=== PATIENT | female | born 1995 | race Caucasian/White ===

== ENCOUNTER 2017-01-09 07:58 | Inpatient (IN) | payer OTHER ==
[~2017-01-09] VITALS: Ht 149.9 cm; Wt 52.3 kg
[2017-01-09] MEDS ORDERED: ONDANSETRON 2MG/ML, 2ML ONE (08:38)
[2017-01-09] MEDS ORDERED: MORPHINE SULFATE 4 MG/ML, 1ML ONE (08:58)
[2017-01-09] MEDS ORDERED: MORPHINE SULFATE 4 MG/ML, 1ML IVPush PRN ×2 (09:00→13:00)
[2017-01-09] MEDS ORDERED: SODIUM CHLORIDE 0.9% 1,000ML IVBOLUS ONE ×2 (09:00→12:00)
[2017-01-09] MEDS ORDERED: SODIUM CHLORIDE FLUSH 10ML SYR IVF ONE (09:00)
[2017-01-09] MEDS ORDERED: ONDANSETRON 2MG/ML, 2ML IVPush ONE (09:00)
[2017-01-09 09:13] LABS: BLOOD UREA NITROGEN 8 mg/dL (7-18)
[2017-01-09 09:20] LABS: ASPARTATE AMINO TRANSFERASE 120 U/L (15-37)
[2017-01-09 10:39] LABS: PATH.CAST-FLAG NOT PRESENT; SPERM-FLAG NOT PRESENT; SRC-FLAG NOT PRESENT; YLC-FLAG NOT PRESENT
[2017-01-09 10:45] LABS: XTAL-FLAG NOT PRESENT
[2017-01-09] MEDS ORDERED: DOCUSATE 100 MG CAPSULE PO PRN (13:00)
[2017-01-09] MEDS ORDERED: BISACODYL 10 MG SUPP PR PRN (13:00)
[2017-01-09] MEDS ORDERED: POLYETHYLENE GLYCOL 17 GM PACKET PO PRN (13:00)
[2017-01-09] MEDS ORDERED: ONDANSETRON 2MG/ML, 2ML IVPush PRN (13:00)
[2017-01-09 13:43] VITALS: BP 121/82
[2017-01-09] MEDS: SODIUM CHLORIDE 0.9% 1,000 ML IV SCH ×2 (14:49→19:47)
[2017-01-09] MEDS: PIPERACILLIN/TAZO 3.375 GM in SODIUM CHLORIDE 0.9% 50 ML IV SCH ×2 (17:30→23:32)
[2017-01-09 20:02] VITALS: BP 128/66
[2017-01-10] MEDS: SODIUM CHLORIDE 0.9% 1,000 ML IV SCH ×2 (01:17→08:42)
[2017-01-10 02:59] VITALS: BP 94/65
[2017-01-10] MEDS: PIPERACILLIN/TAZO 3.375 GM in SODIUM CHLORIDE 0.9% 50 ML IV SCH ×3 (05:50→19:19)
[2017-01-10 05:58] LABS: BLOOD UREA NITROGEN 5 mg/dL (7-18)
[2017-01-10 06:17] LABS: ASPARTATE AMINO TRANSFERASE 35 U/L (15-37)
[2017-01-10 08:35] VITALS: BP 99/59
[2017-01-10] MEDS ORDERED: BUPIVACAINE/PF 0.5% ONE (08:51)
[2017-01-10] MEDS: POTASSIUM CHLORIDE 30 MEQ in LACTATED RINGERS 1,000 ML IV SCH ×2 (09:30→16:16)
[2017-01-10] MEDS ORDERED: MIDAZOLAM 1 MG/ML, 2ML ONE (09:37)
[2017-01-10] MEDS ORDERED: FENTANYL PF 250 MCG/5ML ONE (09:37)
[2017-01-10] MEDS ORDERED: OMNIPAQUE 350 MG/ML, 50 ML BOTTLE ONE (10:28)
[2017-01-10] MEDS ORDERED: LABETALOL 5MG/ML, 20ML IV PRN (10:30)
[2017-01-10] MEDS ORDERED: MEPERIDINE/PF 25MG/0.5ML IVPush PRN (10:30)
[2017-01-10] MEDS ORDERED: hydrALAzine 20 MG/ML, 1ML IV PRN (10:30)
[2017-01-10] MEDS ORDERED: FENTANYL PF 100 MCG/2ML IV PRN (10:30)
[2017-01-10] MEDS ORDERED: OXYcodone 5 MG/5 ML ORAL.SOL UDC PO PRN ×2 (10:30→12:00)
[2017-01-10] MEDS ORDERED: MIDAZOLAM 1 MG/ML, 2ML IV PRN (10:30)
[2017-01-10] MEDS ORDERED: PROMETHAZINE 25 MG/ML, 1ML IV PRN (10:30)
[2017-01-10] MEDS ORDERED: ALBUTEROL SULFATE 2.5 MG/3 ML NPPB PRN (10:30)
[2017-01-10] MEDS ORDERED: HYDROmorphone 1 MG/ML, 1ML IV PRN ×3 (10:30→12:00)
[2017-01-10] MEDS ORDERED: ONDANSETRON 2MG/ML, 2ML IVPush PRN (10:30)
[2017-01-10] MEDS ORDERED: OXYcodone 5 MG/5 ML ORAL.SOL UDC ONE (10:53)
[2017-01-10] MEDS ORDERED: DIPHENHYDRAMINE 50 MG/ML, 1ML IV PRN (12:00)
[2017-01-10] MEDS ORDERED: ONDANSETRON 2MG/ML, 2ML IV PRN (12:00)
[2017-01-10] MEDS ORDERED: ACETAMINOPHEN 325 MG TABLET PO PRN (12:00)
[2017-01-10] MEDS ORDERED: LORazepam 2 MG/ML, 1ML IV PRN (12:00)
[2017-01-10] MEDS ORDERED: DIPHENHYDRAMINE 25 MG CAPSULE PO PRN (12:00)
[2017-01-10] MEDS: POTASSIUM CHLORIDE 20 MEQ in D5%-0.45% NACL 1,000 ML IV SCH ×2 (12:00→21:03)
[2017-01-10] MEDS ORDERED: LORazepam 1MG TABLET PO PRN (12:00)
[2017-01-10] MEDS ORDERED: ACETAMINOPHEN 650 MG SUPP PR PRN (12:00)
[2017-01-10 12:57] VITALS: BP 115/82
[2017-01-10] MEDS ORDERED: DEXAMETHASONE 4 MG/ML, 1ML ONE (15:43)
[2017-01-10] MEDS ORDERED: CEFOTETAN 1 GM ONE (15:43)
[2017-01-10] MEDS ORDERED: SUCCINYLCHOLINE 20 MG/ML, 10ML ONE (15:43)
[2017-01-10] MEDS ORDERED: NEOSTIGMINE 1 MG/ML, 10ML ONE (15:43)
[2017-01-10] MEDS ORDERED: PROPOFOL 10 MG/ML, 20ML ONE (15:43)
[2017-01-10] MEDS ORDERED: ONDANSETRON 2MG/ML, 2ML ONE (15:43)
[2017-01-10] MEDS ORDERED: ROCURONIUM 10 MG/ML ONE (15:43)
[2017-01-10] MEDS ORDERED: GLYCOPYRROLATE 0.2MG/1ML ONE (15:43)
[2017-01-10] MEDS ORDERED: KETOROLAC 30 MG/1 ML ONE (15:43)
[2017-01-10 19:53] VITALS: BP 120/80
[2017-01-10] MEDS: OXYcodone IR 5MG TABLET PO PRN (19:59)
[2017-01-10] MEDS: SODIUM CHLORIDE FLUSH 10ML SYR IVF SCH (21:00)
[2017-01-11] MEDS: PIPERACILLIN/TAZO 3.375 GM in SODIUM CHLORIDE 0.9% 50 ML IV SCH ×2 (00:53→06:29)
[2017-01-11 03:24] VITALS: BP 117/69
[2017-01-11] MEDS: POTASSIUM CHLORIDE 20 MEQ in D5%-0.45% NACL 1,000 ML IV SCH (03:35)
[2017-01-11] MEDS: POTASSIUM CHLORIDE 30 MEQ in LACTATED RINGERS 1,000 ML IV SCH (03:36)
[2017-01-11 05:02] LABS: BLOOD UREA NITROGEN 5 mg/dL (7-18)
[2017-01-11 05:05] LABS: ASPARTATE AMINO TRANSFERASE 26 U/L (15-37)
[2017-01-11 06:35] VITALS: BP 115/68
[2017-01-11] MEDS: OXYcodone IR 5MG TABLET PO PRN (08:01)
[2017-01-11] MEDS: SODIUM CHLORIDE FLUSH 10ML SYR IVF SCH (09:00)
[2017-01-11] MEDS ORDERED: OXYC-302 PO (10:28)
[2017-01-11 10:45] VITALS: BP 125/82
== END 2017-01-11 11:10 | disposition home or self-care (01) | DRG 417 ==
LOC: ED 08:23 → EDIP 11:56 → 4NOR 13:26 → DCLOUNGE 01-11 10:50
PROVIDERS: ADMIT Internal Medicine
PROC: BF101ZZ Fluoroscopy of Bile Ducts using Low Osmolar Contrast (ICD-10-PCS; 2017-01-10)
PROC: 0FT44ZZ Resection of Gallbladder, Percutaneous Endoscopic Approach (ICD-10-PCS; principal; 2017-01-10 15:00)
DX: K80.01 Calculus of gallbladder with acute cholecystitis with obstruction (principal); K85.10 Biliary acute pancreatitis without necrosis or infection; R65.10 Systemic inflammatory response syndrome (SIRS) of non-infectious origin without acute organ dysfunction; E86.0 Dehydration; R74.0 Nonspecific elevation of levels of transaminase and lactic acid dehydrogenase [LDH]; R63.0 Anorexia; E11.9 Type 2 diabetes mellitus without complications; Z90.49 Acquired absence of other specified parts of digestive tract; Z80.9 Family history of malignant neoplasm, unspecified; Z83.79 Family history of other diseases of the digestive system
CPT/HCPCS: 36415; 74000; 74181; 74300; 76700; 80053; 80061; 81001; 83036; 83690; 83735; 84439; 84443; 84703; 85025; 87086; 88304; 96361; 96374; 96375; J1100; J1885; J2250; J2405; J2543; J2704; J2710; J3010; J3480; J3490; Q9967; J0330; J7030; S0074